=== PATIENT | female | born 1945 | race Caucasian/White ===

== ENCOUNTER 2018-09-16 15:08 | Outpatient (CLI) | payer MEDICARE ==
--- NOTE | 2018-09-16 15:40 | RAD ---
LUMBAR SPINE FOUR VIEWS: History: Low back pain. FINDINGS: Mild compression of T12 vertebra is seen. The loss of central and anterior height estimated at 20%. F lat posterior retropulsion of the posterior inferior corner at T12 at the T12-L1 disc space. The lumbar vertebra maintain height. There is mild anterolisthesis at L4-5. Lumbar disc spaces are pr eserved. Mild facet hypertrophy at L4-5 and L5-S1. There is also anterior wedge deformity seen at the T10 vertebra. There is loss of central and anterio r height estimated at 50%. IMPRESSION: 1. Compression deformities involving T10 and T12 vertebra as described above. 2. Mild anterolisthesis of L4-5 with mild degenerative changes of the lumbar spine. POS: [facility]
== END 2018-09-16 15:09 | disposition home or self-care (01) ==
LOC: TBSIIMAG 15:08
PROVIDERS: ATTEND Neurological Surgery
DX: M54.5 Low back pain (principal); M47.816 Spondylosis without myelopathy or radiculopathy, lumbar region; M43.16 Spondylolisthesis, lumbar region
CPT/HCPCS: 72120

== ENCOUNTER 2020-02-17 11:57 | Outpatient (CLI) | payer MEDICARE ==
--- NOTE | 2020-02-17 13:28 | MRI ---
MRA EXAM OF THE [place] MR VENOGRAM OF THE HEAD: HISTORY: Increasing headache. COMPARISON: None. TECHNIQUE: MR angiography of the [place] is performed utilizing axial 3D [id number] imaging. MR benjie ogram is performed utilizing coronal 2D [id number] imaging. FINDINGS: MR ANGIOGRAM OF THE [place]: Appropriate and essentially symmetric flow related signal in the distal cervical and intracranial int ernal carotid arteries. Anterior circulation demonstrates appropriate flow related signal in the A1 segments and proximal A2 segments. There is long segment decreased flow related signal in the mid to distal left M1 segment which may represent a component of atherosclerotic disease. Symmetric flow related signal in the prox imal MCA branches. Distal cervical and intracranial vertebral arteries have appropriate flow related signal. Bilateral P ICA artery origins have appropriate flow related signal. Posterior circulation: Both vertebral arteries supply a normal appearing basilar artery. Appropriate flow related signal in the basilar artery. Bilateral P1 segments have appropriate flow related signal. MR VENOGRAM: Appropriate flow related signal in the superior sagittal sinus, internal cerebral veins, straight sin us, vein of Reji, bilateral transverse sinuses and sigmoid sinus. IMPRESSION: 1. No significant stenosis or aneurysm at the level of [place]. 2. Patent intracranial venous system. Transcribed Date/Time: 02/17/2020 1:38 PM
--- NOTE | 2020-02-17 13:56 | MRI ---
Exam: Brain MRI with and without contrast HISTORY: Increasing headaches. COMPARISON: None FINDINGS: Gradient echo sequence: No hemorrhage Calvarium: Appropriate T1 marrow signal intensity Midline brain parenchyma: Unremarkable Cerebrum:No parenchymal mass, mass effect or midline shift. Brain volume is age-appropriate. Cortical singer-white matter differentiation is preserved. T2 and FLAIR white matter hyperintensities due to chronic small vessel ischemic change. There is a T2 and FLAIR hyperintense focus in the right tempora l subcortical white matter without associated enhancement. This focus has a somewhat globular appearance. Findings may represent chronic small vessel ischemic change. However, low-grade lesion ca nnot be excluded. Ventricles: No evidence of hydrocephalus. Sinuses and mastoid air cells: Adequate aeration Diffusion: Central arterial flow is maintained. Absent restricted diffusion. Postcontrast images: No pathologic enhancement of the brain parenchyma. IMPRESSION: 1. Absent restricted diffusion. No acute infarct 2. No pathologic enhancement of the brain parenchyma 3 Chronic small vessel ischemic changes white matter. Slightly more focal globular T2 and FLAIR hyper intensity in the right vertebral cortex. Follow-up imaging in 6 months is recommended to exclude low-grade lesion.
== END 2020-02-17 11:58 | disposition home or self-care (01) ==
LOC: MRI 11:57
PROVIDERS: ATTEND Neurological Surgery
DX: R51 Headache (principal); I67.82 Cerebral ischemia
CPT/HCPCS: 70544; 70553; 82565